=== PATIENT | male | born 1965 ===

== ENCOUNTER 2023-05-01 04:46 | Emergency (ER) | payer MEDICAID ==
[~2023-05-01] VITALS: Ht 170.2 cm; Wt 117.9 kg
[2023-05-01] MEDS ORDERED: IV NS 1000 ML 1,000 ML IV ONE (05:00)
[2023-05-01 05:10] LABS: VBG AaDO2 65.2 mmHg; VBG BASE EXCESS -3.8 mmol/L (-3-3); VBG HCO3 23.9 mmol/L (22-27); VBG MetHb 0.3 % (0.0-0.5); VBG O2HB 67.6 %; VBG PCO2 53.6 mmHg (41.0-54.0); VBG PH 7.268 (7.310-7.450); VBG PO2 < 40.5 mmHg (25.0-35.0); VBG TOTAL HEMOGLOBIN 15.9 G/dL (12.0-16.0)
[2023-05-01 05:16] LABS: BASOPHILS % (AUTO) 0.4 % (0.0-2.0); EOSINOPHILS # (AUTO) 0.2 K/uL (0.0-0.7); EOSINOPHILS % (AUTO) 1.8 % (0.0-7.0); HEMATOCRIT 43.8 % (36.7-47.1); LYMPHOCYTES # (AUTO) 1.9 K/uL (0.8-4.8); LYMPHOCYTES % (AUTO) 21.6 % (20.5-51.5); MEAN CORPUSCULAR HEMOGLOBIN 29.7 uug (23.8-33.4); MEAN CORPUSCULAR HGB CONC 34 g/dL (32.5-36.3); MEAN CORPUSCULAR VOLUME 86.9 fL (73.0-96.2); MONOCYTES # (AUTO) 0.4 K/uL (0.1-1.30); MONOCYTES % (AUTO) 5.2 % (0.0-11.0); NEUTROPHILS # (AUTO) 6.1 K/uL (1.8-8.9); PLATELET COUNT (AUTO) 263 K/uL (152-348); RED BLOOD CELL COUNT(AUTO) 5.04 MIL/uL (4.06-5.63); RED CELL DISTRIBUTION WIDTH 13.4 % (12.1-16.2); WHITE BLOOD COUNT (AUTO) 8.6 K/uL (3.6-10.2)
[2023-05-01 05:19] LABS: DIFFERENTIAL COMMENT 1
[2023-05-01 05:39] LABS: CALCIUM 8.6 mg/dL (8.5-10.1); CREATININE 1.2 mg/dL (0.6-1.3)
[2023-05-01 05:44] LABS: ALBUMIN 3.5 g/dL (3.4-5.0); BILIRUBIN,TOTAL 0.3 mg/dL (0.2-1.0); TOTAL PROTEIN, SERUM 7.3 g/dL (6.4-8.2)
[2023-05-01] MEDS ORDERED: MIDAZOLAM HCL 2 MG/2 ML VIAL ONE ×2 (06:09→06:20)
[2023-05-01] MEDS ORDERED: MIDAZOLAM HCL 2 MG/2 ML VIAL IV ONE (06:15)
[2023-05-01] MEDS ORDERED: MIDAZOLAM HCL 2 MG/2 ML VIAL IM ONE (06:15)
[2023-05-01 08:54] VITALS: BP 151/78; TEMP 98.3; O2SAT 98
== END 2023-05-01 08:55 | disposition home or self-care (01) ==
LOC: ER 04:48
DX: F10.129 Alcohol abuse with intoxication, unspecified (principal); R06.02 Shortness of breath
CPT/HCPCS: 80053; 83735; 85025; 83930; 93005; 99284; 96361; 96374; 96372; 80320; 36600; J2250 ×2; J7040; 36415; A4606; A4663; G0480